=== PATIENT | male | born 1955 | race Caucasian/White ===

== ENCOUNTER 2019-05-30 06:13 | Day surgery (SDC) | payer OTHER ==
[2019-05-30] VITALS (15 sets, daily range): BP systolic 113–154; BP diastolic 68–87; PULSE 54–66; RESP 10–30; Ht 175.3 cm; Wt 105.1 kg
[~2019-05-30] VITALS: Ht 175.3 cm; Wt 105.1 kg
[~2019-05-30 06:13] MED LIST: ADV10050 INHALATION; ALPR0.254 PO; AMIO200T4 PO; ASPI-831 PO; ATOR40TA68 PO; BP MEDS; CHOLESTEROL; FLUT1AER INHALATION; FURO40TA4 PO; HALF81 PO; LOSA25TA2 PO; LOSA50TA14 PO; METF-849 PO; METF500T24 PO; METO-448 PO; PANT40TA4 PO; POTA-57 PO; SOD CHLORIDE 0.9% 1,000 ML IV SCH
[2019-05-30] MEDS ORDERED: LIDOCAINE 1% (MDV) 20 ML INJ ONE (08:55)
[2019-05-30] MEDS ORDERED: VERAPAMIL 5 MG INJ ONE (08:55)
[2019-05-30] MEDS ORDERED: IODIXANOL LOCM 100 ML BTL ONE (08:55)
[2019-05-30] MEDS ORDERED: HEPARIN 1000 UNITS/ML 10 ML INJ ONE (08:55)
[2019-05-30] MEDS ORDERED: NITROGLYCERIN (IC) 100 MCG/ML INJ ONE (08:58)
[2019-05-30] MEDS ORDERED: MIDAZOLAM 1 MG/ML 2 ML INJ ONE (09:56)
[2019-05-30] MEDS ORDERED: FENTAnyl 50 MCG/ML VIAL ONE (09:56)
[2019-05-30] MEDS ORDERED: SOD CHLORIDE 0.9% 1,000 ML IV SCH (10:52)
[2019-05-30] MEDS ORDERED: ONDANSETRON 4 MG INJ IV PRN (11:00)
[2019-05-30] MEDS ORDERED: AL HYDROX/MG HYDROX/SIMETH 30 ML CUP PO PRN (11:00)
[2019-05-30] MEDS ORDERED: ACETAMINOPHEN 325 MG TAB PO PRN (11:00)
== END 2019-05-30 14:00 | disposition home or self-care (01) ==
LOC: SDS 06:13 → EEVIPCON 06:13 → SDS 14:00
PROVIDERS: ATTEND Internal Medicine Cardiovascular Disease
DX: I25.10 Atherosclerotic heart disease of native coronary artery without angina pectoris (principal); I35.0 Nonrheumatic aortic (valve) stenosis; E11.9 Type 2 diabetes mellitus without complications; I10 Essential (primary) hypertension
CPT/HCPCS: 80053; 80061; 82962; 85025; 85610; 85730; 93005; 93454; C1887; J1644; J2250; J3010; Q9967; Z7610